=== PATIENT | male | born 1970 | race Caucasian/White ===

== ENCOUNTER 2021-12-20 23:58 | Inpatient (IN) | payer BC ==
[~2021-12-20] VITALS: Ht 188 cm; Wt 127.3 kg
[2021-12-21] MEDS ORDERED: amiodarone/D5 360MG/200ML BAG 200 ML IV SCH ×2 (00:15→00:27)
[2021-12-21] MEDS ORDERED: NO HOME MEDS (00:18)
[2021-12-21 00:27] LABS: BASOPHILS # (AUTO) 0.1 X10'3 (0-0.2); EOSINOPHILS # (AUTO) 0.1 X10'3 (0-0.9); EOSINOPHILS % (AUTO) 0.6 % (0-6); HEMATOCRIT 42.7 % (42.0-52.0); HEMOGLOBIN 15.1 g/dl (14.0-17.9); LYMPHOCYTES % (AUTO) 9.7 % (21-51); MEAN CORPUSCULAR HEMOGLOBIN 31.8 PG (27.0-31.0); MEAN CORPUSCULAR HGB CONC 35.2 g/dL (33.0-36.5); MEAN CORPUSCULAR VOLUME 90.4 FL (78-98); MEAN PLATELET VOLUME 9.4 FL (7.4-10.4); MONOCYTES # (AUTO) 0.9 X10'3 (0-0.9); NEUTROPHILS # (AUTO) 8.7 X10'3 (1.8-7.7); NEUTROPHILS % (AUTO) 80.7 % (42-75); PLATELET COUNT 255 X10'3 (140-440); RED BLOOD COUNT 4.73 X10'6 (4.70-6.10); RED CELL DISTRIBUTION WIDTH 12.7 % (11.5-14.5); WHITE BLOOD COUNT 10.8 X10'3 (4.5-11.0)
[2021-12-21 00:41] LABS: ALANINE AMINOTRANSFERASE 110 U/L (12-78); ALBUMIN 3.5 G/DL (3.4-5.0); ALBUMIN/GLOBULIN RATIO 0.9 (1.1-1.5); ALKALINE PHOSPHATASE 80 IU/L (46-116); ANION GAP 10 (8-16); ASPARTATE AMINO TRANSFERASE 81 U/L (10-37); BILIRUBIN,TOTAL 0.4 MG/DL (0.1-1.0); BLOOD UREA NITROGEN 15 MG/DL (7-18); BUN/CREATININE RATIO 12.4 (5.4-32.0); CALCIUM 8.5 MG/DL (8.5-10.1); CHLORIDE 103 MMOL/L (99-107); CREATININE 1.21 MG/DL (0.60-1.10); GLUCOSE 116 MG/DL (70-104); POTASSIUM 3.7 MMOL/L (3.5-5.1); SODIUM 138 MMOL/L (135-145); TOTAL CARBON DIOXIDE 25.2 MMOL/L (24-32); TOTAL PROTEIN 7.2 G/DL (6.4-8.2); eGFR 63 ML/MIN
[2021-12-21 00:47] LABS: MAGNESIUM 2.4 MG/DL (1.5-2.4)
[2021-12-21] MEDS ORDERED: PERFLUTREN PROTEIN-A MICROSPHR (Optison) 0.22 MG/ML 3ML VIAL IV ONE (00:50)
[2021-12-21] MEDS ORDERED: aminophylline 250mg/10ml inj. IV PRN (00:50)
[2021-12-21] MEDS ORDERED: magnesium Cl slow-release 64mg tablet PO PRN (00:50)
[2021-12-21] MEDS ORDERED: regadenoson 0.4mg/5ml syringe IV ONE (00:50)
[2021-12-21] MEDS ORDERED: ondansetron/PF 4mg/2ml inj IV PRN ×2 (00:50→10:35)
[2021-12-21] MEDS ORDERED: magnesium hydroxide 30ml (MOM) UD suspension PO PRN (00:50)
[2021-12-21] MEDS ORDERED: nitroGLYCERIN 0.4mg SUBLingual tab SL PRN (00:50)
[2021-12-21] MEDS ORDERED: acetaminophen 325mg tablet PO PRN ×2 (00:50)
[2021-12-21] MEDS ORDERED: morphine 2 MG/ML inj. syringe IV PRN (00:50)
[2021-12-21] MEDS ORDERED: potassium CL 10mEq/100ml bag 100 ML IV PRN (00:50)
[2021-12-21] MEDS ORDERED: HYDROcodone/acetaminophen 5mg/325mg tablet PO PRN ×2 (00:50→10:35)
[2021-12-21] MEDS ORDERED: LORazepam 1 MG tablet PO PRN (00:50)
[2021-12-21] MEDS ORDERED: mag hydrox/Alum hydrox/simeth 30ml oral suspension PO PRN (00:50)
[2021-12-21] MEDS ORDERED: potassium Cl 20 mEq SR tablet PO PRN ×2 (00:50)
[2021-12-21] MEDS ORDERED: LORazepam 2 mg/ml vial IV PRN (00:50)
[2021-12-21] MEDS ORDERED: haloperidol lactate 5mg/ml inj IM PRN (00:50)
[2021-12-21] MEDS ORDERED: haloperidol 5mg tablet PO PRN (00:50)
[2021-12-21] MEDS ORDERED: magnesium 4gm in 100ml NS 100 ML IV PRN (00:50)
[2021-12-21] MEDS ORDERED: magnesium 2GM in 50ml NS 50 ML IV PRN (00:50)
[2021-12-21] MEDS ORDERED: metoprolol tartrate 1mg/ml inj IV PRN (00:50)
[2021-12-21] MEDS ORDERED: dextrose 50%-water 50ml dispensing syringe IV PRN (00:50)
[2021-12-21] MEDS: normal saline 1000ml 1,000 ML IV SCH ×3 (01:02→21:09)
[2021-12-21] MEDS ORDERED: regadenoson 0.4mg/5ml syringe IV PRN (01:03)
[2021-12-21] MEDS ORDERED: PERFLUTREN PROTEIN-A MICROSPHR (Optison) 0.22 MG/ML 3ML VIAL IV PRN (01:03)
[2021-12-21] MEDS ORDERED: heparin 10,000 units/1 ML INJ IV PRN (01:50)
[2021-12-21] MEDS ORDERED: heparin 25,000 UNIT/250ml bag 250 ML IV SCH (01:50)
[2021-12-21 02:19] VITALS: BP 142/94
[2021-12-21] MEDS: amiodarone/D5 360MG/200ML BAG 200 ML IV SCH ×3 (04:36→19:30)
[2021-12-21 05:40] LABS: CLARITY,URINE CLEAR (Clear); COLOR,URINE YELLOW (Yellow); GLUCOSE, URINE NEGATIVE (Neg); KETONES,URINE 15 mg/dl (Neg); LEUKOCYTE ESTERASE ,URINE NEGATIVE (Neg); NITRITES, URINE NEGATIVE (Neg); OCCULT BLOOD,URINE NEGATIVE (Neg); PROTEIN,URINE 30 mg/dl (Neg)
[2021-12-21 05:41] LABS: UA COLLECTION TYPE NON-SPECIFIED
[2021-12-21 05:55] LABS: BACTERIA,URINE NONE SEEN /HPF (Neg); MUCUS STRANDS FEW /LPF (Neg); RBC,URINE NONE SEEN /HPF (0-2); SQUAMOUS EPITHELIAL CELL,UR FEW /LPF (FEW); WBC,URINE 0-4 /HPF (0-4)
[2021-12-21 05:56] LABS: APTT 30 SECONDS (22-32)
[2021-12-21 06:00] VITALS: BP 147/96
--- NOTE | 2021-12-21 06:30 | NUR ---
Patient in room PCU 3023. I have received report from Miriam WEIR and had the opportunity to ask questions and assume patient care. Patient is alert and oriented this morning during shift change. All needs are met at this time and plan of care were discussed. Patient is NPO for corina.
[2021-12-21] MEDS: pantoprazole 40mg Tablet.DR PO SCH (07:30)
[2021-12-21] MEDS: K and/or MAG REPLACEMENT MC SCH ×2 (08:00→20:00)
[2021-12-21] MEDS ORDERED: heparin, porcine 5000 units/ml vial SQ SCH (08:00)
[2021-12-21] MEDS ORDERED: iohexol 350MG/ML 100ml bottle IV ONE (08:02)
[2021-12-21] MEDS ORDERED: midazolam 1 mg/ML 2ml injection ONE (08:02)
[2021-12-21] MEDS ORDERED: nitroGLYCERIN-Tridil 50MG/D5W 250 ML IV ONE (08:02)
[2021-12-21] MEDS ORDERED: verapamil 2.5 mg/ml inj IV ONE (08:02)
[2021-12-21] MEDS ORDERED: LIDOcaine 1% (10mg/ml)w/preservative injection 20ml MDV ONE (08:02)
[2021-12-21] MEDS ORDERED: heparin 1,000unit/ml 10ml vial 10 ML ONE (08:02)
[2021-12-21] MEDS ORDERED: fentaNYL/PF 50MCG/1 ML 2ML syringe ONE (08:02)
[2021-12-21 08:50] LABS: CHOL/HDL RATIO 4.8 (0.00-4.99); CHOLESTEROL 190 MG/DL (0-200); HDL CHOLESTEROL 40 MG/DL (35-60); LDL CHOLESTEROL 123 MG/DL (50-100); TRIGLYCERIDES 78 MG/DL (20-135)
[2021-12-21] MEDS ORDERED: OXAZEpam 15mg capsule PO PRN (10:35)
[2021-12-21] MEDS ORDERED: proCHLORperazine 10 MG/2 ml inj IV PRN (10:35)
[2021-12-21] MEDS ORDERED: HYDROcodone/acetaminophen 10/325mg tab PO PRN (10:35)
[2021-12-21 11:00] VITALS: BP 148/95
[2021-12-21 12:41] LABS: APTT 32 SECONDS (22-32)
[2021-12-21 15:00] VITALS: BP 132/90
[2021-12-21] MEDS ORDERED: ondansetron 4mg rapidly disintigrating tab PO PRN (16:35)
[2021-12-21 18:00] VITALS: BP 130/87
--- NOTE | 2021-12-21 18:33 | NUR ---
Problems reprioritized. Patient report given, questions answered & plan of care reviewed with Miriam WEIR.
[2021-12-21] MEDS ORDERED: temazepam 15mg capsule PO PRN (21:00)
[2021-12-21] MEDS: atorvastatin 20mg tablet PO SCH (21:08)
[2021-12-21] MEDS: amiodarone 200mg tablet PO SCH (21:09)
[2021-12-21] MEDS: apixaban 5mg tablet PO SCH (21:09)
[2021-12-21 22:00] VITALS: BP 111/52
[2021-12-22] VITALS (14 sets, daily range): BP systolic 107–150; BP diastolic 76–99
[2021-12-22] MEDS: amiodarone/D5 360MG/200ML BAG 200 ML IV SCH ×4 (02:13→19:30)
[2021-12-22 06:26] LABS: BASOPHILS % (AUTO) 0.7 % (0-1); EOSINOPHILS # (AUTO) 0.2 X10'3 (0-0.9); EOSINOPHILS % (AUTO) 2.6 % (0-6); HEMATOCRIT 42.9 % (42.0-52.0); HEMOGLOBIN 14.8 g/dl (14.0-17.9); LYMPHOCYTES # (AUTO) 1.3 X10'3 (1.1-4.8); LYMPHOCYTES % (AUTO) 19.1 % (21-51); MEAN CORPUSCULAR HEMOGLOBIN 31.9 PG (27.0-31.0); MEAN CORPUSCULAR HGB CONC 34.4 g/dL (33.0-36.5); MEAN CORPUSCULAR VOLUME 92.8 FL (78-98); MEAN PLATELET VOLUME 10.1 FL (7.4-10.4); MONOCYTES # (AUTO) 0.6 X10'3 (0-0.9); MONOCYTES % (AUTO) 8.9 % (2-12); NEUTROPHILS # (AUTO) 4.7 X10'3 (1.8-7.7); NEUTROPHILS % (AUTO) 68.7 % (42-75); PLATELET COUNT 236 X10'3 (140-440); RED BLOOD COUNT 4.62 X10'6 (4.70-6.10); RED CELL DISTRIBUTION WIDTH 12.5 % (11.5-14.5); WHITE BLOOD COUNT 6.9 X10'3 (4.5-11.0)
[2021-12-22 06:52] LABS: ALANINE AMINOTRANSFERASE 77 U/L (12-78); ALBUMIN 3.4 G/DL (3.4-5.0); ALBUMIN/GLOBULIN RATIO 1.1 (1.1-1.5); ALKALINE PHOSPHATASE 71 IU/L (46-116); ANION GAP 15 (8-16); ASPARTATE AMINO TRANSFERASE 38 U/L (10-37); BILIRUBIN,TOTAL 0.4 MG/DL (0.1-1.0); BLOOD UREA NITROGEN 10 MG/DL (7-18); BUN/CREATININE RATIO 10.8 (5.4-32.0); CALCIUM 8.7 MG/DL (8.5-10.1); CHLORIDE 107 MMOL/L (99-107); CHOL/HDL RATIO 5.2 (0.00-4.99); CHOLESTEROL 196 MG/DL (0-200); CREATININE 0.93 MG/DL (0.60-1.10); GLUCOSE 99 MG/DL (70-104); HDL CHOLESTEROL 38 MG/DL (35-60); LDL CHOLESTEROL 124 MG/DL (50-100); POTASSIUM 4.2 MMOL/L (3.5-5.1); SODIUM 141 MMOL/L (135-145); TOTAL PROTEIN 6.4 G/DL (6.4-8.2); TRIGLYCERIDES 125 MG/DL (20-135); eGFR 85 ML/MIN
--- NOTE | 2021-12-22 06:59 | NUR ---
Patient in room PCU 3023. I have received report from DESTIN PRICE, and had the opportunity to ask questions and assume patient care.
[2021-12-22] MEDS: amiodarone 200mg tablet PO SCH ×2 (08:00→21:52)
[2021-12-22] MEDS: pantoprazole 40mg Tablet.DR PO SCH (08:00)
[2021-12-22] MEDS: aspirin 81mg, enteric-coated 1 TAB TABLET.DR PO SCH (08:00)
[2021-12-22] MEDS: K and/or MAG REPLACEMENT MC SCH ×2 (08:00→20:00)
[2021-12-22] MEDS: apixaban 5mg tablet PO SCH ×2 (08:01→20:45)
--- NOTE | 2021-12-22 08:02 | NUR ---
Page Sent promotional table spacer PAGER ID: [phone] MESSAGE: [id number] [place]. Pt was started on PO amio last night at 2100 but the amio gtt is still going. I am going to stop it . Please call if you would like me to keep the drip on. Evette [phone]
[2021-12-22] MEDS: normal saline 1000ml 1,000 ML IV SCH ×2 (16:50→20:00)
--- NOTE | 2021-12-22 18:22 | NUR ---
Problems reprioritized. Patient report given, questions answered & plan of care reviewed with DESTIN PRICE.
[2021-12-22] MEDS: atorvastatin 20mg tablet PO SCH (20:44)
[2021-12-22] MEDS: carVEDilol 3.125mg tablet PO SCH (20:45)
--- NOTE | 2021-12-22 22:15 | NUR ---
This nurse stopped the amiodarone drip at 2200 per doctor's order.
[2021-12-23 02:00] VITALS: BP 110/55
[2021-12-23] MEDS: normal saline 1000ml 1,000 ML IV SCH (02:50)
[2021-12-23 05:36] LABS: BASOPHILS # (AUTO) 0.1 X10'3 (0-0.2); BASOPHILS % (AUTO) 0.6 % (0-1); EOSINOPHILS # (AUTO) 0.3 X10'3 (0-0.9); EOSINOPHILS % (AUTO) 3.1 % (0-6); HEMATOCRIT 41.4 % (42.0-52.0); HEMOGLOBIN 14.6 g/dl (14.0-17.9); LYMPHOCYTES # (AUTO) 1.2 X10'3 (1.1-4.8); LYMPHOCYTES % (AUTO) 13.8 % (21-51); MEAN CORPUSCULAR HGB CONC 35.2 g/dL (33.0-36.5); MEAN PLATELET VOLUME 9.4 FL (7.4-10.4); MONOCYTES # (AUTO) 0.9 X10'3 (0-0.9); MONOCYTES % (AUTO) 9.7 % (2-12); NEUTROPHILS # (AUTO) 6.5 X10'3 (1.8-7.7); NEUTROPHILS % (AUTO) 72.8 % (42-75); PLATELET COUNT 247 X10'3 (140-440); RED BLOOD COUNT 4.55 X10'6 (4.70-6.10); RED CELL DISTRIBUTION WIDTH 12.4 % (11.5-14.5)
[2021-12-23 05:55] LABS: ALANINE AMINOTRANSFERASE 63 U/L (12-78); ALBUMIN 3.3 G/DL (3.4-5.0); ALKALINE PHOSPHATASE 69 IU/L (46-116); ANION GAP 10 (8-16); ASPARTATE AMINO TRANSFERASE 24 U/L (10-37); BILIRUBIN,TOTAL 0.7 MG/DL (0.1-1.0); BLOOD UREA NITROGEN 10 MG/DL (7-18); BUN/CREATININE RATIO 9.7 (5.4-32.0); CALCIUM 8.4 MG/DL (8.5-10.1); CHLORIDE 108 MMOL/L (99-107); CREATININE 1.03 MG/DL (0.60-1.10); GLUCOSE 91 MG/DL (70-104); POTASSIUM 4.3 MMOL/L (3.5-5.1); SODIUM 141 MMOL/L (135-145); TOTAL CARBON DIOXIDE 23.5 MMOL/L (24-32); TOTAL PROTEIN 6.6 G/DL (6.4-8.2); eGFR 76 ML/MIN
[2021-12-23 07:00] VITALS: BP 140/79
[2021-12-23] MEDS: K and/or MAG REPLACEMENT MC SCH (08:00)
[2021-12-23] MEDS: amiodarone 200mg tablet PO SCH (08:14)
[2021-12-23] MEDS: aspirin 81mg, enteric-coated 1 TAB TABLET.DR PO SCH (08:14)
[2021-12-23] MEDS: pantoprazole 40mg Tablet.DR PO SCH (08:14)
[2021-12-23] MEDS: carVEDilol 3.125mg tablet PO SCH (08:14)
[2021-12-23] MEDS: apixaban 5mg tablet PO SCH (08:14)
[2021-12-23 11:00] VITALS: BP 124/77
[2021-12-23] MEDS ORDERED: AMIO400T5 PO (12:15)
[2021-12-23] MEDS ORDERED: APIX5TAB3 PO (12:15)
[2021-12-23] MEDS ORDERED: COR3.125T PO (12:15)
[2021-12-23] MEDS ORDERED: NITR0.4T51 SL (12:15)
[2021-12-23] MEDS ORDERED: ATOR40TA PO (12:15)
[2021-12-23] MEDS ORDERED: ASPI-1071 PO (12:15)
--- NOTE | 2021-12-23 13:22 | NUR ---
PT was dc to home and was taken home by his . PIV x2 were removed with cannula intact . RX were sent to [facility] on [address]. Warning s/s and dc instructions were reviewed with the patient and and they verbalized understanding. Pt took all belongings with him. Patient was alert, oriented, and appropriate at time of dc.
[2021-12-25] MEDS ORDERED: folic acid 1mg tablet PO SCH (08:00)
[2021-12-25] MEDS ORDERED: thiamine 100mg tablet PO SCH (08:00)
== END 2021-12-23 13:22 | disposition home or self-care (01) | DRG 281 ==
LOC: ER 23:58 → ED HOLD 12-21 00:54 → PCU 3S 12-21 01:59
PROVIDERS: ADMIT Internal Medicine; ATTEND Family Medicine
PROC: 4A023N7 Measurement of Cardiac Sampling and Pressure, Left Heart, Percutaneous Approach (ICD-10-PCS; principal; 2021-12-21)
PROC: B2111ZZ Fluoroscopy of Multiple Coronary Arteries using Low Osmolar Contrast (ICD-10-PCS; 2021-12-21)
PROC: B2151ZZ Fluoroscopy of Left Heart using Low Osmolar Contrast (ICD-10-PCS; 2021-12-21)
DX: I21.4 Non-ST elevation (NSTEMI) myocardial infarction (principal); I47.2 Ventricular tachycardia; F12.90 Cannabis use, unspecified, uncomplicated; I48.91 Unspecified atrial fibrillation; J30.2 Other seasonal allergic rhinitis
CPT/HCPCS: 36415; 80053; 80061; 81001; 82948; 83735; 83880; 84484; 85025; 85610; 85730; 87081; 93005; 93306; 93458; 97116; 97161; 97530; 99152; 99153; 99291; A4620; A6258; C1769; C1894; G0378; J0282; J1644; J2250; J3010; J3490; J7030; Q9967